=== PATIENT | female | born 1960 | race Caucasian/White ===

== ENCOUNTER → 2024-11-24 | Outpatient (REF) | LOC: M CFLAB 10:30 | DX: N39.0 Urinary tract infection, site not specified (principal) ==

== ENCOUNTER → 2025-02-04 | Outpatient (CLI) | payer MEDICAID, MEDICARE | LOC: M RAD 14:42 | PROVIDERS: ATTEND Physician Assistant | DX: H93.A9 Pulsatile tinnitus, unspecified ear (principal); I65.23 Occlusion and stenosis of bilateral carotid arteries ==

== ENCOUNTER → 2025-05-02 | Outpatient (REF) | LOC: M LABCFH 11:57 | DX: Z13.89 Encounter for screening for other disorder (principal) ==

== ENCOUNTER 2025-08-30 12:36 | Emergency (ER) | payer MEDICARE, MEDICAID ==
[~2025-08-30] VITALS: Ht 154.9 cm; Wt 123.9 kg
[2025-08-30 13:37] LABS: BASO # 0.0 10^3/uL (0.0-0.2); BASO % 0.3 % (0.0-1.0); EOS # 0.4 10^3/uL (0.0-0.5); EOS % 3.1 % (0.0-3.0); LYMPH # 3.3 10^3/uL (1.5-5.0); LYMPH % 28.6 % (24.0-44.0); MONO # 1.1 10^3/uL (0.0-0.8); MONO % 10.0 % (2.0-8.0); NEUTROPHILS # 6.6 10^3/uL (1.5-8.5); NEUTROPHILS % 57.7 % (36.0-66.0); PLATELET COUNT, AUTOMATED 286 10^3/uL (150-450)
[2025-08-30 14:11] LABS: C REACTIVE PROTEIN QUANTITATIV 2.35 MG/DL (<1.0)
[2025-08-30 14:12] LABS: CALCIUM LEVEL 9.5 MG/DL (8.3-10.6); CARBON DIOXIDE LEVEL 30.0 MMOL/L (20-31); CHLORIDE LEVEL 104.0 MMOL/L (98-107); CREATININE FOR GFR 1.03 MG/DL (0.55-1.30); GLOMERULAR FILTRATION RATE 60.3 (>45); POTASSIUM SERUM 4.0 MMOL/L (3.5-5.1); SODIUM LEVEL 141.0 MMOL/L (136-145)
[2025-08-30] MEDS ORDERED: LEVO1TAB38 PO (16:48)
[2025-08-30 16:54] VITALS: BP 157/93; TEMP 98.5; O2SAT 97
== END 2025-08-30 16:55 | disposition home or self-care (01) ==
LOC: M ED 12:36
DX: L03.116 Cellulitis of left lower limb (principal); R22.42 Localized swelling, mass and lump, left lower limb; Z88.1 Allergy status to other antibiotic agents; Z88.2 Allergy status to sulfonamides; Z88.6 Allergy status to analgesic agent; Z88.5 Allergy status to narcotic agent; Z79.899 Other long term (current) drug therapy